=== PATIENT | male | born 1945 | race Hispanic/Latino ===

== ENCOUNTER 2021-04-18 10:07 | Inpatient (IN) | payer MEDICARE ==
[~2021-04-18] VITALS: Ht 167.6 cm; Wt 64.4 kg
[2021-04-18 10:54] LABS: MAGNESIUM 2.1 MG/DL (1.3-2.1)
[2021-04-18] MEDS ORDERED: ENOXAPARIN INJ 80 MG/0.8 ML SYR SC ONE (11:00)
[2021-04-18] MEDS ORDERED: REMDESIVIR 200MG 200 MG in SODIUM CHLORIDE 0.9% 100 ML IV ONE (11:00)
[2021-04-18] MEDS ORDERED: SODIUM CHLORIDE 0.9% 500ML 500 ML IV ONE (11:00)
[2021-04-18 11:01] LABS: CREATINE KINASE MB 1.4 ng/mL (0-5.0)
[2021-04-18 11:07] LABS: BASOPHILS % 0.1 % (0.0-1.0); EOSINOPHILS # (AUTO) 0.1 (0.0-0.4); EOSINOPHILS % 0.8 % (0.0-6.0); HEMATOCRIT 40.3 % (38.2-49.6); HEMOGLOBIN 12.7 g/dL (14.0-18.0); LYMPHOCYTES % 7.3 % (18.0-39.1); MEAN CORPUSCULAR HGB CONC 31.5 g/dL (31-35); MONOCYTES # (AUTO) 0.6 (0.2-0.8); MONOCYTES % 4.2 % (4.4-11.3); NEUTROPHILS # (AUTO) 11.9 (2.1-6.9); NEUTROPHILS % 86.7 % (38.7-80.0); PLATELET COUNT 311 x10e3/uL (140-360); RED BLOOD COUNT 4.38 x10e6/uL (4.3-5.7)
[2021-04-18] MEDS ORDERED: SODIUM CHLORIDE 0.9% 100 ML ONE (11:09)
[2021-04-18 11:10] LABS: INR 1.25
[2021-04-18 11:11] LABS: PARTIAL THROMBOPLASTIN TIME 31.7 seconds (23.8-35.5)
[2021-04-18] MEDS: ZINC SULFATE 50 MG CAP PO SCH (11:12)
[2021-04-18] MEDS: ASCORBIC ACID 500 MG TAB PO SCH (11:12)
[2021-04-18] MEDS: DEXAMETHASONE SOD PHOS 10 MG/1 ML VIAL IV SCH (11:13)
[2021-04-18] MEDS: CEFTRIAXONE 1 GM in SODIUM CHLORIDE 0.9% 50ML 50 ML IV SCH (11:17)
[2021-04-18 11:18] LABS: ALBUMIN 2.7 g/dL (3.5-5.0); ALBUMIN/GLOBULIN RATIO 0.7 (0.8-2.0); ANION GAP 12.8 mmol/L (8-16); CALCIUM 8.2 mg/dL (8.4-10.2); CREATININE, SERUM 0.91 mg/dL (0.72-1.25); POTASSIUM 3.8 mmol/L (3.5-5.1)
[2021-04-18] MEDS ORDERED: REMDESIVIR 100MG 100 MG IV ONE (11:41)
[2021-04-18] MEDS ORDERED: PRAVASTATIN SOD20 MG (17:27)
[2021-04-18] MEDS ORDERED: AMLODIPINE BESY10 MG (17:27)
[2021-04-18 18:09] VITALS: BP 114/64
[2021-04-18 18:19] VITALS: BP 111/74
[2021-04-18 20:00] VITALS: BP 114/69
[2021-04-18 21:00] VITALS: BP 114/69
[2021-04-18] MEDS ORDERED: ZOLPIDEM TARTRATE 5 MG TAB PO PRN (21:00)
[2021-04-19] VITALS (9 sets, daily range): BP systolic 100–128; BP diastolic 58–82
[2021-04-19 05:09] LABS: BASOPHILS % 0.1 % (0.0-1.0); HEMATOCRIT 36.4 % (38.2-49.6); HEMOGLOBIN 11.9 g/dL (14.0-18.0); LYMPHOCYTES # (AUTO) 0.6 (1.0-3.2); MEAN CORPUSCULAR HEMOGLOBIN 29.7 pg (28-32); MEAN CORPUSCULAR HGB CONC 32.7 g/dL (31-35); MEAN CORPUSCULAR VOLUME 90.8 fL (81-99); MONOCYTES # (AUTO) 0.6 (0.2-0.8); MONOCYTES % 6.5 % (4.4-11.3); NEUTROPHILS # (AUTO) 7.8 (2.1-6.9); NEUTROPHILS % 85.7 % (38.7-80.0); PLATELET COUNT 291 x10e3/uL (140-360); RED BLOOD COUNT 4.01 x10e6/uL (4.3-5.7); RED CELL DISTRIBUTION WIDTH 12.9 % (11.7-14.4)
[2021-04-19 05:42] LABS: ALBUMIN 2.5 g/dL (3.5-5.0); ALBUMIN/GLOBULIN RATIO 0.7 (0.8-2.0); ANION GAP 11.8 mmol/L (8-16); CALCIUM 8.2 mg/dL (8.4-10.2); CREATININE, SERUM 0.73 mg/dL (0.72-1.25); POTASSIUM 3.8 mmol/L (3.5-5.1)
[2021-04-19 05:54] LABS: CREATINE KINASE 32 IU/L (30-200)
[2021-04-19] MEDS ORDERED: GUAIFENESIN/DEXTROMETHORPHAN LIQD 5 ML UDC NG PRN (08:45)
[2021-04-19] MEDS: ASCORBIC ACID 500 MG TAB PO SCH ×2 (08:46→16:28)
[2021-04-19] MEDS: DEXAMETHASONE SOD PHOS 10 MG/1 ML VIAL IV SCH (08:46)
[2021-04-19] MEDS: CEFTRIAXONE 1 GM in SODIUM CHLORIDE 0.9% 50ML 50 ML IV SCH (08:46)
[2021-04-19] MEDS: PRAVASTATIN 20 MG TAB PO SCH (08:46)
[2021-04-19] MEDS: AMLODIPINE BESYLATE 10 MG TAB PO SCH (08:46)
[2021-04-19] MEDS: ZINC SULFATE 50 MG CAP PO SCH (08:46)
[2021-04-19] MEDS: CHOLECALCIFEROL 400 UNIT TAB PO SCH (08:53)
[2021-04-19] MEDS: LORATADINE 10 MG TAB PO SCH (08:53)
[2021-04-19] MEDS: BENZONATATE 100 MG CAP PO SCH ×3 (08:53→23:03)
[2021-04-19] MEDS ORDERED: REMDESIVIR 100MG 100 MG in SODIUM CHLORIDE 0.9% 100 ML IV SCH (10:00)
[2021-04-19] MEDS: REMDESIVIR 100MG 100 MG in SODIUM CHLORIDE 0.9% 100 ML IV SCH (14:41)
[2021-04-19] MEDS: ENOXAPARIN SOD INJ 40 MG/0.4 ML SYR SC SCH (16:28)
[2021-04-20] VITALS (11 sets, daily range): BP systolic 99–129; BP diastolic 67–88
[2021-04-20 04:58] LABS: BASOPHILS % 0.1 % (0.0-1.0); HEMATOCRIT 38.4 % (38.2-49.6); HEMOGLOBIN 12.4 g/dL (14.0-18.0); LYMPHOCYTES % 5.6 % (18.0-39.1); MEAN CORPUSCULAR HEMOGLOBIN 29.2 pg (28-32); MEAN CORPUSCULAR HGB CONC 32.3 g/dL (31-35); MEAN CORPUSCULAR VOLUME 90.6 fL (81-99); MONOCYTES % 5.1 % (4.4-11.3); NEUTROPHILS # (AUTO) 16.4 (2.1-6.9); NEUTROPHILS % 88.4 % (38.7-80.0); PLATELET COUNT 339 x10e3/uL (140-360); RED BLOOD COUNT 4.24 x10e6/uL (4.3-5.7)
[2021-04-20 05:29] LABS: ALBUMIN 2.5 g/dL (3.5-5.0); ALBUMIN/GLOBULIN RATIO 0.7 (0.8-2.0); CALCIUM 8.3 mg/dL (8.4-10.2); CREATININE, SERUM 0.77 mg/dL (0.72-1.25)
[2021-04-20] MEDS: CHOLECALCIFEROL 400 UNIT TAB PO SCH (09:39)
[2021-04-20] MEDS: CEFTRIAXONE 1 GM in SODIUM CHLORIDE 0.9% 50ML 50 ML IV SCH (09:39)
[2021-04-20] MEDS: BENZONATATE 100 MG CAP PO SCH ×3 (09:39→21:20)
[2021-04-20] MEDS: ASCORBIC ACID 500 MG TAB PO SCH ×2 (09:39→17:10)
[2021-04-20] MEDS: PRAVASTATIN 20 MG TAB PO SCH (09:39)
[2021-04-20] MEDS: AMLODIPINE BESYLATE 10 MG TAB PO SCH (09:39)
[2021-04-20] MEDS: LORATADINE 10 MG TAB PO SCH (09:39)
[2021-04-20] MEDS: DEXAMETHASONE SOD PHOS 10 MG/1 ML VIAL IV SCH (09:39)
[2021-04-20] MEDS: ZINC SULFATE 50 MG CAP PO SCH (09:40)
[2021-04-20] MEDS: REMDESIVIR 100MG 100 MG in SODIUM CHLORIDE 0.9% 100 ML IV SCH (14:36)
[2021-04-20] MEDS ORDERED: Vancomycin IV 1 GM in SODIUM CHLORIDE 0.9% 250ML 250 ML IV ONE (15:30)
[2021-04-20] MEDS: ENOXAPARIN SOD INJ 40 MG/0.4 ML SYR SC SCH (17:10)
[2021-04-21] VITALS (9 sets, daily range): BP systolic 121–135; BP diastolic 65–82
[2021-04-21 05:02] LABS: BASOPHILS % 0.1 % (0.0-1.0); HEMATOCRIT 38.4 % (38.2-49.6); HEMOGLOBIN 12.4 g/dL (14.0-18.0); LYMPHOCYTES % 6.7 % (18.0-39.1); MEAN CORPUSCULAR HEMOGLOBIN 29.3 pg (28-32); MEAN CORPUSCULAR HGB CONC 32.3 g/dL (31-35); MEAN CORPUSCULAR VOLUME 90.8 fL (81-99); MONOCYTES # (AUTO) 0.8 (0.2-0.8); MONOCYTES % 5.1 % (4.4-11.3); NEUTROPHILS # (AUTO) 12.9 (2.1-6.9); NEUTROPHILS % 87.5 % (38.7-80.0); PLATELET COUNT 327 x10e3/uL (140-360); RED BLOOD COUNT 4.23 x10e6/uL (4.3-5.7)
[2021-04-21 05:29] LABS: ALBUMIN 2.5 g/dL (3.5-5.0); ALBUMIN/GLOBULIN RATIO 0.7 (0.8-2.0); ANION GAP 11.4 mmol/L (8-16); CALCIUM 8.2 mg/dL (8.4-10.2); CREATININE, SERUM 0.75 mg/dL (0.72-1.25); POTASSIUM 4.4 mmol/L (3.5-5.1)
[2021-04-21] MEDS: CEFTRIAXONE 1 GM in SODIUM CHLORIDE 0.9% 50ML 50 ML IV SCH (08:56)
[2021-04-21] MEDS: LORATADINE 10 MG TAB PO SCH (08:56)
[2021-04-21] MEDS: CHOLECALCIFEROL 400 UNIT TAB PO SCH (08:56)
[2021-04-21] MEDS: AMLODIPINE BESYLATE 10 MG TAB PO SCH (08:56)
[2021-04-21] MEDS: ZINC SULFATE 50 MG CAP PO SCH (08:56)
[2021-04-21] MEDS: ASCORBIC ACID 500 MG TAB PO SCH (08:56)
[2021-04-21] MEDS: PRAVASTATIN 20 MG TAB PO SCH (08:56)
[2021-04-21] MEDS: BENZONATATE 100 MG CAP PO SCH ×2 (08:56→14:12)
[2021-04-21] MEDS: DEXAMETHASONE SOD PHOS 10 MG/1 ML VIAL IV SCH (08:56)
[2021-04-21] MEDS ORDERED: LORATADINE10 MG PO (10:47)
[2021-04-21] MEDS ORDERED: TESSALON PERLE100 MG PO (10:47)
[2021-04-21] MEDS ORDERED: PREDNISONE20 MG PO (10:47)
[2021-04-21] MEDS ORDERED: Zinc Sulfate PO (10:47)
[2021-04-21] MEDS ORDERED: ROBITUSSIN COU118 M4 PO (10:47)
[2021-04-21] MEDS ORDERED: Cholecalciferol PO (10:47)
[2021-04-21] MEDS ORDERED: ZITHROMAX500 MG PO (10:47)
[2021-04-21] MEDS ORDERED: CEPHALEXIN500 MG PO (10:47)
[2021-04-21] MEDS: REMDESIVIR 100MG 100 MG in SODIUM CHLORIDE 0.9% 100 ML IV SCH (14:12)
== END 2021-04-21 17:55 | disposition home or self-care (01) | DRG 177 ==
LOC: ER 10:15 → ERHOLD 11:15 → IMCU 17:52
PROVIDERS: ADMIT Internal Medicine; ATTEND Internal Medicine
PROC: 3E0333Z Introduction of Anti-inflammatory into Peripheral Vein, Percutaneous Approach (ICD-10-PCS; principal; 2021-04-18)
PROC: XW033E5 Introduction of Remdesivir Anti-infective into Peripheral Vein, Percutaneous Approach, New Technology Group 5 (ICD-10-PCS; 2021-04-18)
DX: U07.1 COVID-19 (principal); J12.82 Pneumonia due to coronavirus disease 2019; J96.01 Acute respiratory failure with hypoxia; J15.9 Unspecified bacterial pneumonia; I10 Essential (primary) hypertension; E78.5 Hyperlipidemia, unspecified; E11.9 Type 2 diabetes mellitus without complications; R53.81 Other malaise
CPT/HCPCS: 36415; 71045; 80053; 82550; 82553; 83735; 83880; 84484; 85025; 85610; 85730; 87040; 87071; 87205; 93005; 99285; J0456; J0696; J1100; J1650; J3370; J7040; J7050; U0002